=== PATIENT | male | born 1955 | race Two or more races ===

== ENCOUNTER 2024-04-18 12:27 | Inpatient (IN) | payer OTHER ==
[2024-04-18 13:05] VITALS: BMI 25.1
[2024-04-18] MEDS ORDERED: NALOXONE (NARCAN) HCL 4 MG/0.1 ML SPRAY NS PRN (13:40)
[2024-04-18] MEDS ORDERED: MAG HYDROX/AL HYDROX/SIMETH 30 ML UNIT-DOSE CUP PO PRN (13:40)
[2024-04-18] MEDS ORDERED: BENZONATATE 200 MG CAPSULE PO PRN (13:40)
[2024-04-18] MEDS ORDERED: ACETAMINOPHEN 325 MG TABLET (FP) PO PRN (13:40)
[2024-04-18] MEDS ORDERED: hydrOXYzine PAMOATE 25 MG CAPSULE (FP) PO PRN (13:40)
[2024-04-18] MEDS ORDERED: NICOTINE POLACRILEX 2 MG GUM BUC PRN (13:40)
[2024-04-18] MEDS ORDERED: guaiFENesin 600 MG TABLET.ER (FP) PO PRN (13:40)
[2024-04-18] MEDS ORDERED: POLYETHYLENE GLYCOL (HEALTHYLAX) 3350 17 GM PACKET PO PRN (13:40)
[2024-04-18] MEDS ORDERED: BENZOCAINE/MENTHOL (CHLORASEPTIC ) LOZENGE MM PRN (13:40)
[2024-04-18] MEDS ORDERED: ACAMPROSATE CALCIUM 333 MG TABLET.DR PO SCH (14:00)
[2024-04-18] MEDS: ACAMPROSATE CALCIUM 333 MG TABLET.DR PO SCH (17:32)
[2024-04-18] MEDS: APIXABAN 5 MG TABLET PO SCH ×2 (17:32→21:48)
[2024-04-18 18:46] LABS: URINE APPEARANCE CLEAR; URINE BILIRUBIN NEGATIVE (NEGATIVE); URINE COLOR YELLOW; URINE GLUCOSE (UA) NEGATIVE (NEGATIVE); URINE KETONE NEGATIVE (NEGATIVE); URINE LEUK ESTERASE NEGATIVE (NEGATIVE); URINE NITRITE NEGATIVE (NEGATIVE); URINE PROTEIN NEGATIVE (NEGATIVE); URINE UROBILINOGEN 0.2 mg/dL (0.2-1.0)
[2024-04-18] MEDS: ATORVASTATIN CA 80 MG TABLET (FP) PO SCH (21:48)
[2024-04-18] MEDS: MELATONIN 5 MG TABLETS PO SCH (21:48)
[2024-04-18] MEDS: THIAMINE 100 MG TABLET PO SCH (21:48)
[2024-04-19] MEDS: LOSARTAN POTASSIUM 25 MG TABLET PO SCH (09:13)
[2024-04-19] MEDS: PRENATAL VITAMINS W/ FOLIC ACID TABLET (FP) PO SCH (09:13)
[2024-04-19] MEDS: FOLIC ACID 1 MG TABLET (FP) PO SCH (09:13)
[2024-04-19] MEDS: NICOTINE 14 MG/24 HOURS TOPICAL PATCH TD SCH (09:13)
[2024-04-19 11:31] LABS: HEMATOCRIT 38.4 % (35.4-49); MCH 24.8 pg (25.7-33.7); MCHC 31.2 g/dl (32.0-35.9); MEAN CELL VOLUME 79.5 fl (80-96); MEAN PLT VOLUME 8.6 fl (7.5-11.1); PLATELET COUNT 214 10^3/uL (134-434); RBC 4.82 M/mm3 (4.00-5.60); RDW 15.4 % (11.9-15.9); WHITE BLOOD COUNT 6.7 K/mm3 (4.0-10.0)
[2024-04-19 11:41] LABS: CALCIUM 9.9 mg/dL (8.5-10.1)
[2024-04-19 11:42] LABS: ALBUMIN 4.2 g/dl (3.4-5.0); BLOOD UREA NITROGEN 14.8 mg/dL (7-18)
[2024-04-19 11:44] LABS: BILIRUBIN,TOTAL 0.7 mg/dL (0.2-1); TOT PROT 8.2 g/dl (6.4-8.2)
[2024-04-19 11:45] LABS: CREATININE 0.8 mg/dL (0.55-1.3)
[2024-04-19 12:47] LABS: SYPHILIS W/ RPR CONF NON-REACTIVE (NONREACTIVE)
[2024-04-19] MEDS: FLU VACCINE (FLULAVAL) PF 45 MCG/0.5 ML SYRINGE 2024-2025 IM ONE (12:50)
[2024-04-19] MEDS ORDERED: ATORVASTATIN CA 40 MG TABLET (FP) ONE (20:16)
[2024-04-19] MEDS: LOPERAMIDE HCL 2 MG CAPSULE PO PRN (22:45)
[2024-04-20] MEDS ORDERED: ATORVASTATIN CA 40 MG TABLET (FP) ONE (21:30)
[2024-04-20] MEDS: MAGNESIUM HYDROX 2400MG/30ML ORAL SUSPENSION 30 ML CUP PO PRN (21:33)
[2024-04-21] MEDS ORDERED: ATORVASTATIN CA 40 MG TABLET (FP) ONE (21:30)
[2024-04-22 06:38] VITALS: RESP 16; TEMP 97.5
[2024-04-22] MEDS ORDERED: ATORVASTATIN CA 40 MG TABLET (FP) ONE (21:49)
[2024-04-23] MEDS ORDERED: ATORVASTATIN CA 40 MG TABLET (FP) ONE (21:16)
[2024-04-24 08:54] VITALS: BP 118/65; PULSE 68
[2024-04-24] MEDS: NALOXONE (NYS OPIOID OVERDOSE PROGRAM) 4 MG/0.1 ML SPRAY NS PRN (09:50)
== END 2024-04-24 09:54 | disposition home or self-care (01) | DRG 895 ==
LOC: YASAS 12:27 → Y3NR 15:26 → Y3W 04-19 09:45
PROVIDERS: ADMIT Psychiatry & Neurology Pain Medicine; ATTEND Psychiatry & Neurology Pain Medicine
PROC: HZ42ZZZ Group Counseling for Substance Abuse Treatment, Cognitive-Behavioral (ICD-10-PCS; principal; 2024-04-18)
DX: F10.20 Alcohol dependence, uncomplicated (principal); E72.20 Disorder of urea cycle metabolism, unspecified; F17.210 Nicotine dependence, cigarettes, uncomplicated; E78.5 Hyperlipidemia, unspecified; I10 Essential (primary) hypertension; Z86.718 Personal history of other venous thrombosis and embolism; Z86.711 Personal history of pulmonary embolism; Z79.01 Long term (current) use of anticoagulants
CPT/HCPCS: 36415; 71046-TC-FY; 80053; 80305; 80307; 81003; 82140; 82962; 85027; 86780; 86803; 87811; 90656; 93005; 93010; G0008